=== PATIENT | female | born 1955 | race African-American/Black ===

== ENCOUNTER 2017-09-06 14:19 | Inpatient (IN) | payer MEDICARE ==
[2017-09-06] MEDS ORDERED: Acetaminophen TAB* 325 MG PO ONE (16:09)
[2017-09-06] MEDS ORDERED: Ondansetron INJ* 2 MG/ML VIAL IV ONE (16:09)
[2017-09-06] MEDS ORDERED: Ketorolac INJ* 30 MG/ML 1 ML VIAL IV ONE (16:09)
[2017-09-06] MEDS ORDERED: Albuterol/Ipratropium NEB.SOL* Albuterol 2.5 MG/Ipratropium 0.5 MG 3 ML INH ONE (16:09)
[2017-09-06] MEDS: NS 0.9% 1000 ML*IV.FLUID IV ONE ×2 (16:31→16:32)
[2017-09-06 16:52] LABS: ABS Basophils 0.1 10^3/ul (0-0.2); ABS Eosinophils 0 10^3/ul (0-0.6); ABS Lymphocytes 0.7 10^3/ul (1.0-4.8); ABS Monocytes 1.2 10^3/ul (0-0.8); ABS Neutrophils 4.7 10^3/ul (1.5-7.7); ABS Nucleated RBC 0 10^3/ul; Eosinophil % 0.3 % (0-6); Hematocrit 37 % (35-47); Mean Corpuscular HGB Conc 33 g/dl (31-36); Mean Corpuscular Hemoglobin 26 pg (27-31); Mean Corpuscular Volume 80 fL (80-97); Mean Platelet Volume 7 um3 (7.4-10.4); Nucleated Red Blood Cells % 0; Platelet Count 343 10^3/ul (150-450); Red Blood Count 4.56 10^6/ul (4.0-5.4); Red Cell Distribution Width 16 % (10.5-15); White Blood Count 6.7 10^3/ul (3.5-10.8)
[2017-09-06 17:01] LABS: INR 1.07 (0.77-1.02)
[2017-09-06 17:03] LABS: EGFR Non-African American 63.4 (>60)
--- NOTE | 2017-09-06 17:11 | RAD ---
INDICATION: Cough and wheezing. COMPARISON: Comparison is made with a prior chest x-ray study from November 07, 2014. TECHNIQUE: A portable view of the chest was obtained. FINDINGS: Cardiac and mediastinal contours appear to be within normal limits. The lungs are clear. No pleural effusion is seen. IMPRESSION: NO EVIDENCE FOR ACUTE DISEASE.
[2017-09-06] MEDS ORDERED: methylPREDNISolone 125 MG* 2 ML VIAL IV ONE (17:32)
[2017-09-06] MEDS ORDERED: Ondansetron INJ* 2 MG/ML VIAL IV PRN (17:32)
[2017-09-06] MEDS ORDERED: Albuterol 2.5 MG/3 ML NEB.SOL* (0.083%) INH PRN (17:32)
[2017-09-06] MEDS ORDERED: NS 0.9% 1000 ML* 1,000 ML IV SCH (17:45)
[2017-09-06 17:47] LABS: Urine Appearance Clear; Urine Blood 2+ (Negative); Urine Color Yellow; Urine Ketones 1+ (Negative); Urine Protein 1+(30 mg/dL) (Negative); Urine Specific Gravity 1.018 (1.010-1.030); Urine Urobilinogen Negative (Negative)
[2017-09-06] MEDS ORDERED: Albuterol/Ipratropium NEB.SOL* Albuterol 2.5 MG/Ipratropium 0.5 MG 3 ML INH SCH (18:00)
--- NOTE | 2017-09-06 19:43 | HP ---
CC: Dr. Blas * HISTORY AND PHYSICAL: DATE OF ADMISSION: 09/06/17 PRIMARY CARE PROVIDER: Dr. Blas. ATTENDING PHYSICIAN WHILE IN THE HOSPITAL: Dr. Regi Erwin * (report dictated by Norman Doan NP) CHIEF COMPLAINT: 1. Cough. 2. Arthralgias, myalgias. 3. Not feeling well. 4. Shortness of breath. HISTORY OF PRESENT ILLNESS: Ms. Adan is a 62-year-old female patient with a history of hypertension and asthma. She comes in to the ED today stating that she just since has not been feeling well. She has been tightness across her chest. She has been trying her nebulizers. They help initially, but they were off shortly and she was feeling like her chest was tight. She was having hard time breathing. She had been having runny nose, congested. She said she had a scratchy throat. She has just been aching all over, feeling really weak and fatigued. She came in to the ED today because she was not any getting better. She said she has been coughing and really just been productive of clear sputum. She denied any nausea or vomiting or diarrhea or any stomach pain. She said she has not had any exertional chest pain and just her chest really hurts when she coughs or takes a deep breath. She was evaluated here in the ED. It was noted that she was febrile. She was ultimately found to be flu positive and we were asked to evaluate for admission because of her history of asthma. In fact, she was wheezing on exam and it was felt that she would need aggressive therapy. PAST MEDICAL HISTORY: Significant for: 1. Hypertension. 2. Asthma. PAST SURGICAL HISTORY: 1. The patient has had a tubal ligation. 2. She has had a meningioma resection. MEDICATIONS: Home meds according to the bottle she brought in include: 1. Ferrous sulfate 325 mg p.o. daily. 2. Advair 1 puff inhaled b.i.d. 3. Flonase 50 mcg nasally daily. 4. Ventolin 2.5 mg inhaled q.4 hours as needed. 5. Triamcinolone cream 1 application topically daily. 6. Naproxen 220 mg p.o. daily. 7. Lisinopril 40 mg daily. 8. Amlodipine 10 mg p.o. daily. 9. Lopressor 100 mg p.o. b.i.d. ALLERGIES TO MEDICATIONS: Include none, but she is allergic to EGGS. FAMILY HISTORY: Mother had a history of hypertension, asthma. Father had a history of CT. SOCIAL HISTORY: Former smoker. She quit about 6 years ago. She does not drink alcohol. Surrogate decision maker is her son. REVIEW OF SYSTEMS: There is a documented fever here. She denied having any significant weight change. There was no double vision. There is no ear discharge. There is rhinorrhea. There is sore throat. There was no thyroid enlargement. There is chest pain when she coughs or takes deep breath. There is no abdominal pain. No nausea, no vomiting. No dysuria, no frequency. There was no seizure, no loss of consciousness. No pruritus and no skin ulcerations. Review of 14 systems was completed, all others negative. PHYSICAL EXAMINATION GENERAL: At this time, Ms. Adan is a 62-year-old female patient. She is sitting in the ED stretcher. She does not appear to be in any acute distress. She is awake and alert. VITAL SIGNS: Blood pressure initially when she came in 176/91 with pulse 104; respirations were 27, they are now 20; O2 sat 100% on room air; temperature was 101.2. HEENT: Head: Atraumatic, normocephalic. Eyes: EOMs are intact. Sclerae anicteric and not pale. Throat: Oral mucosa appears to be moist. No oropharyngeal erythema. NECK: Supple. LUNGS: She had expiratory wheezing noted throughout. She has equal diaphragmatic expansion. HEART: Sounds S1, S2. Regular rate and rhythm. No murmurs, rubs, or gallops. ABDOMEN: Soft, flat, nontender. Bowel sounds present. EXTREMITIES: Pulses were 2+ throughout. She is able to move all 4 extremities with 5/5 strength. NEUROLOGIC: The patient is awake, alert, she is oriented x3. Her tongue is midline. Sound System Installer were equal. She had no gross focal deficits. SKIN: Intact. DIAGNOSTIC STUDIES/LAB DATA: WBC is 6.7, RBC of 4.56, hemoglobin 12.0, hematocrit 37, platelet count of 343. Sodium 134, potassium 3.5, chloride of 97 , bicarb 27, BUN 10, creatinine of 0.90, glucose 105, lactate 0.6, calcium 9.2. Total bili 0.5, AST 21, ALT 11, alk phos 89. Troponin 0.01. CRP of 34. BNP 44. Albumin 4.0. Serology was positive for flu A. She had a chest x-ray obtained today, which showed no active disease. Old medical records were reviewed. ASSESSMENT AND PLAN: Ms. Adan is a 62-year-old female patient coming in to the ED today with complaints of cough, not feeling well, rhinorrhea, congestion. On evaluation, was found to be flu A positive. She will be admitted under observation status for: 1. Influenza A with asthma exacerbation. At this point, I do feel she needs observation stay. I am going to go ahead and give her steroids. Start with Solu- Medrol 60 b.i.d. Load her with 125 right now. In addition to this, I will go ahead, put her on nebs every 4 hours, p.r.n. albuterol. We will get Dulera started. Start her on Tamiflu, which has been ordered and we will continue with supportive care. We will hydrate the patient, which has been started here in the ED and we will continue to follow. 2. Hypertension. Again, blood pressures are in the 170s here, but she did not take her meds this morning. We will give her meds back this morning for today and we will follow this closely. 3. DVT prophylaxis. I will place her on heparin subcu. 4. Code status. Full code. 5. Fluids, electrolytes, and nutrition. Normal saline at 100 an hour has been ordered. She can have a regular diet. TIME SPENT: On admission was 60 minutes, greater than half the time was spent face- to-face with the patient obtaining my history and physical, other half time was spent going over the plan of care with the patient and implementing plan of care. I did discuss the plan of care with my attending, Dr. Erwin; she is in agreement. NORMAN DOAN NP [id number]/[facility] #: [id number] MTDD
--- NOTE | 2017-09-06 20:16 | ED ---
Antonio Bejarano Tecjoon, scribed for Edward Higuera MD on 09/06/17 at 1612 . HPI Febrile Illness - HPI Summary HPI Summary: This patient is a 62 year old female presenting to [facility] accompanied by family and friends with a chief complaint of productive cough and febrile illness since 2 days ago, worsening yesterday. Patient states she has been feeling generally ill. The pain is rated 8/10 in severity. Symptoms aggravated by nothing. Symptoms alleviated by OTC medication. Patient additionally reports chest pain, cough, lower back pain, headache, general bodyaches, fever, chills, wheezing, scratchy throat. Patient denies nausea, vomiting, diarrhea, urinary problems. Patient denies a history of kidney problems. When checking blood pressure at home, pt states it was 171/86. - History of Current Complaint Chief Complaint: EDAsthma Time Seen by Provider: 09/06/17 15:57 Hx Obtained From: Patient Onset/Duration: Started Days Ago - 2, Still Present, Worse Since - yesterday Timing: Constant Current Severity: Moderate Pain Intensity: 8 Pain Scale Used: 0-10 Numeric Aggravating Factors: Nothing Alleviating Factors: OTC Medicine Associated Signs and Symptoms: Negative - denies nausea, vomiting, diarrhea, urinary problems, Other: - chest pain, cough, lower back pain, headache, general bodyaches, fever, chills, wheezing, scratchy throat. - Allergy/Home Medications Allergies/Adverse Reactions: Allergies Allergy/AdvReac Type Severity Reaction Status Date / Time Eggs or Egg-derived Products Allergy Intermediate Nausea And Verified 11/18/16 09:34 Vomiting Home Medications: Home Medications Ferrous Sulfate TAB* 325 mg PO DAILY 09/06/17 [History Confirmed 09/06/17] Naproxen Sodium [Naproxen Sodium 220 mg] 220 mg PO DAILY 09/06/17 [History Confirmed 09/06/17] PMH/Surg Hx/FS Hx/Imm Hx Previously Healthy: No Endocrine/Hematology History: Denies: Hx Diabetes - BORDERLINE NO MEDICATION Cardiovascular History: Reports: Hx Hypertension Denies: Hx Pacemaker/ICD Respiratory History: Reports: Hx Asthma, Hx Pneumonia, Hx Sleep Apnea - uses CPAP History: Denies: Hx Renal Disease Musculoskeletal History: Denies: Hx Osteoporosis Sensory History: Reports: Hx Contacts or Glasses Denies: Hx Hearing Aid Opthamlomology History: Reports: Hx Contacts or Glasses Psychiatric History: Reports: Hx Depression - did not take meds for Denies: Hx Panic Disorder - Cancer History Cancer Type, Location and Year: maningioma tumor - surgical removal Hx Chemotherapy: No Hx Radiation Therapy: No - Surgical History Surgery Procedure, Year, and Place: Tubal ligation; removal of brain tumor 2011 IN [facility](SEVERAL [place] [facility] [place] RT FOOT SURGERY(PINS IN TOES) Infectious Disease History: No Infectious Disease History: Denies: Traveled Outside the [place] in Last 30 Days - Family History Known Family History: Positive: Hypertension Family History: Mother - thyroid disorder - Social History Alcohol Use: Rare - 1/2 a year Hx Substance Use: No Substance Use Type: Reports: None Hx Tobacco Use: Yes Smoking Status (MU): Former Smoker Review of Systems Positive: Fever, Chills Positive: Other - "scratchy" throat Positive: Chest Pain Positive: Cough, Other - wheezing Negative: Vomiting, Diarrhea, Nausea Genitourinary: Negative - urinary problems Positive: Other - lower back pain, general bodyaches Positive: Headache All Other Systems Reviewed And Are Negative: Yes Physical Exam - Summary Physical Exam Summary: General: Moderately ill-appearing. mild respiratory distress Skin: warm, color reflects adequate perfusion, dry Head: normal Eyes: EOMI, VIANCA ENT: normal Neck: supple, nontender Respiratory: loose cough. bilateral wheezing Cardiovascular: Tachycardic Abdomen: soft, nontender Bowel: present Musculoskeletal: normal, strength/ROM intact Neurological: normal, sensory/motor intact, A&O x3 Psychological: affect/mood appropriate Triage Information Reviewed: Yes Vital Signs On Initial Exam: Initial Vitals Temp Pulse Resp BP Pulse Ox 101.2 F 98 18 147/100 96 09/06/17 14:21 09/06/17 14:21 09/06/17 14:21 09/06/17 14:21 09/06/17 14:21 Vital Signs Reviewed: Yes Diagnostics - Vital Signs Vital Signs Temp Pulse Resp BP Pulse Ox 09/06/17 14:21 101.2 F 98 18 147/100 96 - Laboratory Lab Results: Lab Results 09/06/17 09/06/17 09/06/17 Range/Units 16:35 16:35 16:35 WBC (3.5-10.8) 10^3/ul RBC (4.0-5.4) 10^6/ul Hgb (12.0-16.0) g/dl Hct (35-47) % MCV (80-97) fL MCH (27-31) pg MCHC (31-36) g/dl RDW (10.5-15) % Plt Count (150-450) 10^3/ul MPV (7.4-10.4) um3 Neut % (Auto) (38-83) % Lymph % (Auto) (25-47) % [place] % (Auto) (1-9) % Eos % (Auto) (0-6) % Baso % (Auto) (0-2) % Absolute Neuts (auto) (1.5-7.7) 10^3/ul Absolute Lymphs (auto) (1.0-4.8) 10^3/ul Absolute Monos (auto) (0-0.8) 10^3/ul Absolute Eos (auto) (0-0.6) 10^3/ul Absolute Basos (auto) (0-0.2) 10^3/ul Absolute Nucleated RBC 10^3/ul Nucleated RBC % INR (Anticoag Therapy) 1.07 H (0.77-1.02) APTT 37.1 H (26.0-36.3) seconds Sodium 134 (133-145) mmol/L Potassium 3.5 (3.5-5.0) mmol/L Chloride 97 L (101-111) mmol/L Carbon Dioxide 29 (22-32) mmol/L Anion Gap 8 (2-11) mmol/L BUN 10 (6-24) mg/dL Creatinine 0.90 (0.51-0.95) mg/dL Est GFR ( Amer) 81.6 (>60) Est GFR (Non-Af Amer) 63.4 (>60) BUN/Creatinine Ratio 11.1 (8-20) Glucose 105 H (70-100) mg/dL Lactic Acid (0.5-2.0) mmol/L Calcium 9.2 (8.6-10.3) mg/dL Total Bilirubin 0.50 (0.2-1.0) mg/dL AST 21 (13-39) U/L ALT 11 (7-52) U/L Alkaline Phosphatase 89 (34-104) U/L Troponin I 0.01 (<0.04) ng/mL C-Reactive Protein 34.14 H (< 5.00) mg/L B-Natriuretic Peptide 44 ( - 100) pg/mL Total Protein 7.9 (6.4-8.9) g/dL Albumin 4.0 (3.2-5.2) g/dL Globulin 3.9 (2-4) g/dL Albumin/Globulin Ratio 1.0 (1-3) Urine Color Urine Appearance Urine pH (5-9) Ur Specific [place] (1.010-1.030) Urine Protein (Negative) Urine Ketones (Negative) Urine Blood (Negative) Urine Nitrate (Negative) Urine Bilirubin (Negative) Urine Urobilinogen (Negative) Ur Leukocyte Esterase (Negative) Urine WBC (Auto) (Absent) Urine RBC (Auto) (Absent) Ur Squamous Epith Cells (Absent) Urine Bacteria (Absent) Urine Glucose (Negative) Influenza A (Rapid) (Negative) Influenza B (Rapid) (Negative) 09/06/17 09/06/17 09/06/17 Range/Units 16:35 16:35 17:13 WBC 6.7 (3.5-10.8) 10^3/ul RBC 4.56 (4.0-5.4) 10^6/ul Hgb 12.0 (12.0-16.0) g/dl Hct 37 (35-47) % MCV 80 (80-97) fL MCH 26 L (27-31) pg MCHC 33 (31-36) g/dl RDW 16 H (10.5-15) % Plt Count 343 (150-450) 10^3/ul MPV 7 L (7.4-10.4) um3 Neut % (Auto) 70.2 (38-83) % Lymph % (Auto) 11.0 L (25-47) % [place] % (Auto) 17.7 H (1-9) % Eos % (Auto) 0.3 (0-6) % Baso % (Auto) 0.8 (0-2) % Absolute Neuts (auto) 4.7 (1.5-7.7) 10^3/ul Absolute Lymphs (auto) 0.7 L (1.0-4.8) 10^3/ul Absolute Monos (auto) 1.2 H (0-0.8) 10^3/ul Absolute Eos (auto) 0 (0-0.6) 10^3/ul Absolute Basos (auto) 0.1 (0-0.2) 10^3/ul Absolute Nucleated RBC 0 10^3/ul Nucleated RBC % 0 INR (Anticoag Therapy) (0.77-1.02) APTT (26.0-36.3) seconds Sodium (133-145) mmol/L Potassium (3.5-5.0) mmol/L Chloride (101-111) mmol/L Carbon Dioxide (22-32) mmol/L Anion Gap (2-11) mmol/L BUN (6-24) mg/dL Creatinine (0.51-0.95) mg/dL Est GFR ( Amer) (>60) Est GFR (Non-Af Amer) (>60) BUN/Creatinine Ratio (8-20) Glucose (70-100) mg/dL Lactic Acid 0.6 (0.5-2.0) mmol/L Calcium (8.6-10.3) mg/dL Total Bilirubin (0.2-1.0) mg/dL AST (13-39) U/L ALT (7-52) U/L Alkaline Phosphatase (34-104) U/L Troponin I (<0.04) ng/mL C-Reactive Protein (< 5.00) mg/L B-Natriuretic Peptide ( - 100) pg/mL Total Protein (6.4-8.9) g/dL Albumin (3.2-5.2) g/dL Globulin (2-4) g/dL Albumin/Globulin Ratio (1-3) Urine Color Urine Appearance Urine pH (5-9) Ur Specific [place] (1.010-1.030) Urine Protein (Negative) Urine Ketones (Negative) Urine Blood (Negative) Urine Nitrate (Negative) Urine Bilirubin (Negative) Urine Urobilinogen (Negative) Ur Leukocyte Esterase (Negative) Urine WBC (Auto) (Absent) Urine RBC (Auto) (Absent) Ur Squamous Epith Cells (Absent) Urine Bacteria (Absent) Urine Glucose (Negative) Influenza A (Rapid) Positive H (Negative) Influenza B (Rapid) Negative (Negative) 09/06/17 Range/Units 17:18 WBC (3.5-10.8) 10^3/ul RBC (4.0-5.4) 10^6/ul Hgb (12.0-16.0) g/dl Hct (35-47) % MCV (80-97) fL MCH (27-31) pg MCHC (31-36) g/dl RDW (10.5-15) % Plt Count (150-450) 10^3/ul MPV (7.4-10.4) um3 Neut % (Auto) (38-83) % Lymph % (Auto) (25-47) % [place] % (Auto) (1-9) % Eos % (Auto) (0-6) % Baso % (Auto) (0-2) % Absolute Neuts (auto) (1.5-7.7) 10^3/ul Absolute Lymphs (auto) (1.0-4.8) 10^3/ul Absolute Monos (auto) (0-0.8) 10^3/ul Absolute Eos (auto) (0-0.6) 10^3/ul Absolute Basos (auto) (0-0.2) 10^3/ul Absolute Nucleated RBC 10^3/ul Nucleated RBC % INR (Anticoag Therapy) (0.77-1.02) APTT (26.0-36.3) seconds Sodium (133-145) mmol/L Potassium (3.5-5.0) mmol/L Chloride (101-111) mmol/L Carbon Dioxide (22-32) mmol/L Anion Gap (2-11) mmol/L BUN (6-24) mg/dL Creatinine (0.51-0.95) mg/dL Est GFR ( Amer) (>60) Est GFR (Non-Af Amer) (>60) BUN/Creatinine Ratio (8-20) Glucose (70-100) mg/dL Lactic Acid (0.5-2.0) mmol/L Calcium (8.6-10.3) mg/dL Total Bilirubin (0.2-1.0) mg/dL AST (13-39) U/L ALT (7-52) U/L Alkaline Phosphatase (34-104) U/L Troponin I (<0.04) ng/mL C-Reactive Protein (< 5.00) mg/L B-Natriuretic Peptide ( - 100) pg/mL Total Protein (6.4-8.9) g/dL Albumin (3.2-5.2) g/dL Globulin (2-4) g/dL Albumin/Globulin Ratio (1-3) Urine Color Yellow Urine Appearance Clear Urine pH 6.0 (5-9) Ur Specific [place] 1.018 (1.010-1.030) Urine Protein 1+(30 mg/dl) H (Negative) Urine Ketones 1+ H (Negative) Urine Blood 2+ H (Negative) Urine Nitrate Negative (Negative) Urine Bilirubin Negative (Negative) Urine Urobilinogen Negative (Negative) Ur Leukocyte Esterase 1+ H (Negative) Urine WBC (Auto) Trace(0-5/hpf) (Absent) Urine RBC (Auto) 3+(>10/hpf) H (Absent) Ur Squamous Epith Cells Present H (Absent) Urine Bacteria Absent (Absent) Urine Glucose Negative (Negative) Influenza A (Rapid) (Negative) Influenza B (Rapid) (Negative) Result Diagrams: 09/06/17 16:35 09/06/17 16:35 Lab Statement: Any lab studies that have been ordered have been reviewed, and results considered in the medical decision making process. - Radiology CXR Xray Interpretation: No Acute Changes - IMPRESSION: NO EVIDENCE FOR ACUTE DISEASE. ED physician has reviewed this radiology report. Radiology Interpretation Completed By: Radiologist Course/Dx - Course Course Of Treatment: ADMIT HOSPITALIST. NO CRITICAL CARE TIME. - Diagnoses Provider Diagnoses: Influenza A, Asthma exacerbation Discharge - Discharge Plan Condition: Stable Disposition: ADMITTED TO [facility] The documentation as recorded by the Antonio condon Tecjoon accurately reflects the service I personally performed and the decisions made by , Edward Higuera MD.
[2017-09-06] MEDS: Mometasone/Formoter 200/5 MDI INH SCH (20:34)
[2017-09-06] MEDS: Albuterol/Ipratropium NEB.SOL* Albuterol 2.5 MG/Ipratropium 0.5 MG 3 ML INH SCH ×2 (20:34→23:12)
[2017-09-06] MEDS: Lisinopril TAB* 10 MG PO SCH (21:57)
[2017-09-06] MEDS: Oseltamivir CAP* 75 MG PO SCH (21:57)
[2017-09-06] MEDS: Metoprolol Tartrate TAB* 50 mg PO SCH ×2 (21:57)
[2017-09-06] MEDS: amLODIPine TAB* 5 MG PO SCH (21:57)
[2017-09-06] MEDS: methylPREDNISolone 125 MG* 2 ML VIAL IV SCH (22:00)
[2017-09-06] MEDS: Heparin VIAL(*) 5000 UNITS/ML VIAL (FIVE THOUSAND) SUBCUT SCH (22:00)
[2017-09-07] MEDS: Acetaminophen TAB* 325 MG PO PRN ×2 (01:38→17:32)
[2017-09-07] MEDS: Albuterol/Ipratropium NEB.SOL* Albuterol 2.5 MG/Ipratropium 0.5 MG 3 ML INH SCH ×5 (03:23→19:35)
[2017-09-07] MEDS: methylPREDNISolone 125 MG* 2 ML VIAL IV SCH ×2 (06:02→17:25)
[2017-09-07] MEDS: Heparin VIAL(*) 5000 UNITS/ML VIAL (FIVE THOUSAND) SUBCUT SCH ×3 (06:02→20:48)
[2017-09-07 07:36] LABS: ABS Basophils 0 10^3/ul (0-0.2); ABS Eosinophils 0 10^3/ul (0-0.6); ABS Lymphocytes 0.7 10^3/ul (1.0-4.8); ABS Monocytes 0.1 10^3/ul (0-0.8); ABS Neutrophils 3.8 10^3/ul (1.5-7.7); ABS Nucleated RBC 0 10^3/ul; Eosinophil % 0.1 % (0-6); Hematocrit 37 % (35-47); Hemoglobin 12.1 g/dl (12.0-16.0); Mean Corpuscular HGB Conc 33 g/dl (31-36); Mean Corpuscular Hemoglobin 26 pg (27-31); Mean Corpuscular Volume 81 fL (80-97); Mean Platelet Volume 7 um3 (7.4-10.4); Nucleated Red Blood Cells % 0.1; Platelet Count 329 10^3/ul (150-450); Red Cell Distribution Width 16 % (10.5-15); White Blood Count 4.6 10^3/ul (3.5-10.8)
[2017-09-07 08:01] LABS: EGFR Non-African American 86.2 (>60)
[2017-09-07] MEDS: Lisinopril TAB* 10 MG PO SCH (08:18)
[2017-09-07] MEDS: Metoprolol Tartrate TAB* 50 mg PO SCH ×2 (08:18→20:47)
[2017-09-07] MEDS: Oseltamivir CAP* 75 MG PO SCH ×2 (08:18→20:47)
[2017-09-07] MEDS: amLODIPine TAB* 5 MG PO SCH (08:18)
[2017-09-07] MEDS: Mometasone/Formoter 200/5 MDI INH SCH ×3 (08:30→19:36)
--- NOTE | 2017-09-07 11:34 | PN ---
Subjective Date of Service: 09/07/17 Interval History: Pt examined today at the bedside. Pt denies chest pain and denies sob at rest. She has sob with exertion. She states that she feels a little better today. Denies abdominal pain. ROS-denies chest pain, admits to sob with exertion, denies abdominal pain, denies nausea, denies vomiting, denies lightheadedness, denies loc, denies fever or chills, review of 11 systems completed all others negative, Objective Active Medications: Acetaminophen (Tylenol Tab*) 650 mg PO Q4H PRN PRN Reason: FEVER/PAIN Last Admin: 09/07/17 01:38 Dose: 650 mg Albuterol (Ventolin 2.5 Mg/3 Ml Neb.Sharlene*) 2.5 mg INH Q2H PRN PRN Reason: SOB/WHEEZING Albuterol/Ipratropium (Duoneb (Albuterol 2.5 Mg/Ipratropium 0.5 Mg)) 1 neb INH Q4H [facility] Last Admin: 09/07/17 10:09 Dose: Not Given Amlodipine Besylate (Norvasc Tab*) 10 mg PO DAILY [facility] Last Admin: 09/07/17 08:18 Dose: 10 mg Heparin Sodium (Porcine) (Heparin Vial(*)) 5,000 units SUBCUT Q8HR [facility] Last Admin: 09/07/17 06:02 Dose: 5,000 units Sodium Chloride (Ns 0.9% 1000 Ml*) 1,000 mls @ 100 mls/hr IV PER RATE [facility] Last Admin: 09/06/17 22:09 Dose: 100 mls/hr Lisinopril (Prinivil Tab*) 40 mg PO DAILY [facility] Last Admin: 09/07/17 08:18 Dose: 40 mg Methylprednisolone Sodium Succinate (Solu-Medrol 125mg *) 60 mg IV Q12H [facility] Last Admin: 09/07/17 06:02 Dose: 60 mg Metoprolol Tartrate (Lopressor Tab*) 100 mg PO BID [facility] Last Admin: 09/07/17 08:18 Dose: 100 mg Mometasone Furoate/Formoterol Fumar (Dulera 200/5 Mdi*) 2 puff INH BID [facility] Last Admin: 09/07/17 10:09 Dose: Not Given Ondansetron HCl (Zofran Inj*) 4 mg IV Q6H PRN PRN Reason: NAUSEA Oseltamivir Phosphate (Tamiflu Cap*) 75 mg PO BID [facility] Stop: 09/11/17 09:01 Last Admin: 09/07/17 08:18 Dose: 75 mg Vital Signs - 8 hr 09/07/17 09/07/17 09/07/17 07:21 08:18 08:19 Temperature 98.1 F Pulse Rate 74 74 70 Respiratory 17 20 20 Rate Blood Pressure 149/76 (mmHg) O2 Sat by Pulse 94 94 94 Oximetry Oxygen Devices in Use Now: None Appearance: 62 y/o female patient sitting in bed NAD, Eyes: No Scleral Icterus, PERRLA Ears/Nose/Mouth/Throat: NL Teeth, Lips, Gums Neck: NL Appearance and Movements; NL JVP Respiratory: Symmetrical Chest Expansion and Respiratory Effort, - - wheezing noted in upper and lower lobes, rhonchi in upper lobes, Cardiovascular: NL Sounds; No Murmurs; No JVD Abdominal: NL Sounds; No Tenderness; No Distention Extremities: No Edema Skin: No Rash or Ulcers Neurological: Alert and Oriented x 3 Lines/Tubes/Other Access: Clean, Dry and Intact Peripheral IV Result Diagrams: 09/07/17 07:30 09/07/17 07:30 Additional Lab and Data: Lab Results 09/06/17 09/06/17 09/06/17 Range/Units 16:35 16:35 16:35 WBC (3.5-10.8) 10^3/ul RBC (4.0-5.4) 10^6/ul Hgb (12.0-16.0) g/dl Hct (35-47) % MCV (80-97) fL MCH (27-31) pg MCHC (31-36) g/dl RDW (10.5-15) % Plt Count (150-450) 10^3/ul MPV (7.4-10.4) um3 Neut % (Auto) (38-83) % Lymph % (Auto) (25-47) % [place] % (Auto) (1-9) % Eos % (Auto) (0-6) % Baso % (Auto) (0-2) % Absolute Neuts (auto) (1.5-7.7) 10^3/ul Absolute Lymphs (auto) (1.0-4.8) 10^3/ul Absolute Monos (auto) (0-0.8) 10^3/ul Absolute Eos (auto) (0-0.6) 10^3/ul Absolute Basos (auto) (0-0.2) 10^3/ul Absolute Nucleated RBC 10^3/ul Nucleated RBC % INR (Anticoag Therapy) 1.07 H (0.77-1.02) APTT 37.1 H (26.0-36.3) seconds Sodium 134 (133-145) mmol/L Potassium 3.5 (3.5-5.0) mmol/L Chloride 97 L (101-111) mmol/L Carbon Dioxide 29 (22-32) mmol/L Anion Gap 8 (2-11) mmol/L BUN 10 (6-24) mg/dL Creatinine 0.90 (0.51-0.95) mg/dL Est GFR ( Amer) 81.6 (>60) Est GFR (Non-Af Amer) 63.4 (>60) BUN/Creatinine Ratio 11.1 (8-20) Glucose 105 H (70-100) mg/dL Lactic Acid (0.5-2.0) mmol/L Calcium 9.2 (8.6-10.3) mg/dL Total Bilirubin 0.50 (0.2-1.0) mg/dL AST 21 (13-39) U/L ALT 11 (7-52) U/L Alkaline Phosphatase 89 (34-104) U/L Troponin I 0.01 (<0.04) ng/mL C-Reactive Protein 34.14 H (< 5.00) mg/L B-Natriuretic Peptide 44 ( - 100) pg/mL Total Protein 7.9 (6.4-8.9) g/dL Albumin 4.0 (3.2-5.2) g/dL Globulin 3.9 (2-4) g/dL Albumin/Globulin Ratio 1.0 (1-3) Urine Color Urine Appearance Urine pH (5-9) Ur Specific [place] (1.010-1.030) Urine Protein (Negative) Urine Ketones (Negative) Urine Blood (Negative) Urine Nitrate (Negative) Urine Bilirubin (Negative) Urine Urobilinogen (Negative) Ur Leukocyte Esterase (Negative) Urine WBC (Auto) (Absent) Urine RBC (Auto) (Absent) Ur Squamous Epith Cells (Absent) Urine Bacteria (Absent) Urine Glucose (Negative) Influenza A (Rapid) (Negative) Influenza B (Rapid) (Negative) 09/06/17 09/06/17 09/06/17 Range/Units 16:35 16:35 17:13 WBC 6.7 (3.5-10.8) 10^3/ul RBC 4.56 (4.0-5.4) 10^6/ul Hgb 12.0 (12.0-16.0) g/dl Hct 37 (35-47) % MCV 80 (80-97) fL MCH 26 L (27-31) pg MCHC 33 (31-36) g/dl RDW 16 H (10.5-15) % Plt Count 343 (150-450) 10^3/ul MPV 7 L (7.4-10.4) um3 Neut % (Auto) 70.2 (38-83) % Lymph % (Auto) 11.0 L (25-47) % [place] % (Auto) 17.7 H (1-9) % Eos % (Auto) 0.3 (0-6) % Baso % (Auto) 0.8 (0-2) % Absolute Neuts (auto) 4.7 (1.5-7.7) 10^3/ul Absolute Lymphs (auto) 0.7 L (1.0-4.8) 10^3/ul Absolute Monos (auto) 1.2 H (0-0.8) 10^3/ul Absolute Eos (auto) 0 (0-0.6) 10^3/ul Absolute Basos (auto) 0.1 (0-0.2) 10^3/ul Absolute Nucleated RBC 0 10^3/ul Nucleated RBC % 0 INR (Anticoag Therapy) (0.77-1.02) APTT (26.0-36.3) seconds Sodium (133-145) mmol/L Potassium (3.5-5.0) mmol/L Chloride (101-111) mmol/L Carbon Dioxide (22-32) mmol/L Anion Gap (2-11) mmol/L BUN (6-24) mg/dL Creatinine (0.51-0.95) mg/dL Est GFR ( Amer) (>60) Est GFR (Non-Af Amer) (>60) BUN/Creatinine Ratio (8-20) Glucose (70-100) mg/dL Lactic Acid 0.6 (0.5-2.0) mmol/L Calcium (8.6-10.3) mg/dL Total Bilirubin (0.2-1.0) mg/dL AST (13-39) U/L ALT (7-52) U/L Alkaline Phosphatase (34-104) U/L Troponin I (<0.04) ng/mL C-Reactive Protein (< 5.00) mg/L B-Natriuretic Peptide ( - 100) pg/mL Total Protein (6.4-8.9) g/dL Albumin (3.2-5.2) g/dL Globulin (2-4) g/dL Albumin/Globulin Ratio (1-3) Urine Color Urine Appearance Urine pH (5-9) Ur Specific [place] (1.010-1.030) Urine Protein (Negative) Urine Ketones (Negative) Urine Blood (Negative) Urine Nitrate (Negative) Urine Bilirubin (Negative) Urine Urobilinogen (Negative) Ur Leukocyte Esterase (Negative) Urine WBC (Auto) (Absent) Urine RBC (Auto) (Absent) Ur Squamous Epith Cells (Absent) Urine Bacteria (Absent) Urine Glucose (Negative) Influenza A (Rapid) Positive H (Negative) Influenza B (Rapid) Negative (Negative) 09/06/17 Range/Units 17:18 WBC (3.5-10.8) 10^3/ul RBC (4.0-5.4) 10^6/ul Hgb (12.0-16.0) g/dl Hct (35-47) % MCV (80-97) fL MCH (27-31) pg MCHC (31-36) g/dl RDW (10.5-15) % Plt Count (150-450) 10^3/ul MPV (7.4-10.4) um3 Neut % (Auto) (38-83) % Lymph % (Auto) (25-47) % [place] % (Auto) (1-9) % Eos % (Auto) (0-6) % Baso % (Auto) (0-2) % Absolute Neuts (auto) (1.5-7.7) 10^3/ul Absolute Lymphs (auto) (1.0-4.8) 10^3/ul Absolute Monos (auto) (0-0.8) 10^3/ul Absolute Eos (auto) (0-0.6) 10^3/ul Absolute Basos (auto) (0-0.2) 10^3/ul Absolute Nucleated RBC 10^3/ul Nucleated RBC % INR (Anticoag Therapy) (0.77-1.02) APTT (26.0-36.3) seconds Sodium (133-145) mmol/L Potassium (3.5-5.0) mmol/L Chloride (101-111) mmol/L Carbon Dioxide (22-32) mmol/L Anion Gap (2-11) mmol/L BUN (6-24) mg/dL Creatinine (0.51-0.95) mg/dL Est GFR ( Amer) (>60) Est GFR (Non-Af Amer) (>60) BUN/Creatinine Ratio (8-20) Glucose (70-100) mg/dL Lactic Acid (0.5-2.0) mmol/L Calcium (8.6-10.3) mg/dL Total Bilirubin (0.2-1.0) mg/dL AST (13-39) U/L ALT (7-52) U/L Alkaline Phosphatase (34-104) U/L Troponin I (<0.04) ng/mL C-Reactive Protein (< 5.00) mg/L B-Natriuretic Peptide ( - 100) pg/mL Total Protein (6.4-8.9) g/dL Albumin (3.2-5.2) g/dL Globulin (2-4) g/dL Albumin/Globulin Ratio (1-3) Urine Color Yellow Urine Appearance Clear Urine pH 6.0 (5-9) Ur Specific [place] 1.018 (1.010-1.030) Urine Protein 1+(30 mg/dl) H (Negative) Urine Ketones 1+ H (Negative) Urine Blood 2+ H (Negative) Urine Nitrate Negative (Negative) Urine Bilirubin Negative (Negative) Urine Urobilinogen Negative (Negative) Ur Leukocyte Esterase 1+ H (Negative) Urine WBC (Auto) Trace(0-5/hpf) (Absent) Urine RBC (Auto) 3+(>10/hpf) H (Absent) Ur Squamous Epith Cells Present H (Absent) Urine Bacteria Absent (Absent) Urine Glucose Negative (Negative) Influenza A (Rapid) (Negative) Influenza B (Rapid) (Negative) Microbiology and Other Data: Microbiology 09/07/17 04:40 Legionella Urinary Antigen - Final Urine Negative Legionella Streptococcus pneumoniae Ag Screen - Final Negative S. pneumo Antigen 09/07/17 04:30 Gram Stain - Final Sputum Expectorated Assess/Plan/Problems-Billing Assessment: 62 y/o female patient [place] [facility] [place] chills, and not feeling well, found to have influenza, - Patient Problems (1) Asthma Current Visit: Yes Status: Acute Priority: High Comment: still wheezing on exam today, will continue nebs q4h and iv steriods, tamiflu continued as well , continue with pulm toilet slow to improve, (2) HTN (hypertension) Current Visit: Yes Status: Acute Priority: High Comment: Bp stable will continue home medications (3) Influenza Current Visit: Yes Status: Acute Priority: High Comment: supportive care and tamiflu (4) DVT prophylaxis Current Visit: Yes Status: Acute Priority: High Comment: heparin sub-q (5) FEN Current Visit: Yes Status: Acute Priority: High Comment: Regular diet Status and Disposition: Change to inpatient will continue nebs, steroids, tamiflu, hopeful for d/c in next 24-48 hrs,
[2017-09-08] MEDS: Albuterol/Ipratropium NEB.SOL* Albuterol 2.5 MG/Ipratropium 0.5 MG 3 ML INH SCH ×4 (01:06→13:10)
[2017-09-08] MEDS: Heparin VIAL(*) 5000 UNITS/ML VIAL (FIVE THOUSAND) SUBCUT SCH (05:45)
[2017-09-08] MEDS: methylPREDNISolone 125 MG* 2 ML VIAL IV SCH (05:45)
[2017-09-08] MEDS: Mometasone/Formoter 200/5 MDI INH SCH (07:47)
[2017-09-08 07:57] VITALS: BP 167/75
[2017-09-08] MEDS: Lisinopril TAB* 10 MG PO SCH (08:03)
[2017-09-08] MEDS: Oseltamivir CAP* 75 MG PO SCH (08:03)
[2017-09-08] MEDS: Metoprolol Tartrate TAB* 50 mg PO SCH (08:03)
[2017-09-08] MEDS: amLODIPine TAB* 5 MG PO SCH (08:03)
[2017-09-08 08:05] LABS: ABS Basophils 0 10^3/ul (0-0.2); ABS Eosinophils 0 10^3/ul (0-0.6); ABS Lymphocytes 1.1 10^3/ul (1.0-4.8); ABS Monocytes 0.5 10^3/ul (0-0.8); ABS Neutrophils 11.7 10^3/ul (1.5-7.7); ABS Nucleated RBC 0 10^3/ul; Eosinophil % 0 % (0-6); Hematocrit 34 % (35-47); Hemoglobin 11.3 g/dl (12.0-16.0); Lymphocyte % 8.2 % (25-47); Mean Corpuscular HGB Conc 33 g/dl (31-36); Mean Corpuscular Hemoglobin 26 pg (27-31); Mean Corpuscular Volume 79 fL (80-97); Mean Platelet Volume 7 um3 (7.4-10.4); Nucleated Red Blood Cells % 0.1; Platelet Count 350 10^3/ul (150-450); Red Blood Count 4.33 10^6/ul (4.0-5.4); Red Cell Distribution Width 16 % (10.5-15); White Blood Count 13.4 10^3/ul (3.5-10.8)
[2017-09-08 08:18] LABS: EGFR Non-African American 80.8 (>60)
[2017-09-08] MEDS ORDERED: Omeprazole CAP* 20 MG PO SCH (10:30)
--- NOTE | 2017-09-08 20:05 | PN ---
Subjective Date of Service: 09/08/17 Interval History: States that she is feeling much better today, states that breathing is improved Denies shortness of breath, chest pain or abd pain, Denies N/V/D Family History: Unchanged from Admission Social History: Unchanged from Admission Past Medical History: Unchanged from Admission Objective Vital Signs - 8 hr 09/08/17 13:13 Pulse Rate 66 Respiratory 18 Rate O2 Sat by Pulse 97 Oximetry Oxygen Devices in Use Now: None Appearance: alert, pleasent , appears comfortable , no respiratory distress. Eyes: No Scleral Icterus, PERRLA Ears/Nose/Mouth/Throat: Clear Oropharnyx, Mucous Membranes Moist Neck: NL Appearance and Movements; NL JVP, Trachea Midline Respiratory: Symmetrical Chest Expansion and Respiratory Effort, Clear to Auscultation Cardiovascular: NL Sounds; No Murmurs; No JVD, RRR, No Edema Abdominal: NL Sounds; No Tenderness; No Distention Extremities: No Edema, No Clubbing, Cyanosis Skin: No Rash or Ulcers Neurological: Alert and Oriented x 3, NL Sensation, NL Gait, NL Muscle Strength and Tone Nutrition: Taking PO's Result Diagrams: 09/08/17 07:33 09/08/17 07:33 Additional Lab and Data: Lab Results 09/06/17 09/06/17 09/06/17 Range/Units 16:35 16:35 16:35 WBC (3.5-10.8) 10^3/ul RBC (4.0-5.4) 10^6/ul Hgb (12.0-16.0) g/dl Hct (35-47) % MCV (80-97) fL MCH (27-31) pg MCHC (31-36) g/dl RDW (10.5-15) % Plt Count (150-450) 10^3/ul MPV (7.4-10.4) um3 Neut % (Auto) (38-83) % Lymph % (Auto) (25-47) % [place] % (Auto) (1-9) % Eos % (Auto) (0-6) % Baso % (Auto) (0-2) % Absolute Neuts (auto) (1.5-7.7) 10^3/ul Absolute Lymphs (auto) (1.0-4.8) 10^3/ul Absolute Monos (auto) (0-0.8) 10^3/ul Absolute Eos (auto) (0-0.6) 10^3/ul Absolute Basos (auto) (0-0.2) 10^3/ul Absolute Nucleated RBC 10^3/ul Nucleated RBC % INR (Anticoag Therapy) 1.07 H (0.77-1.02) APTT 37.1 H (26.0-36.3) seconds Sodium 134 (133-145) mmol/L Potassium 3.5 (3.5-5.0) mmol/L Chloride 97 L (101-111) mmol/L Carbon Dioxide 29 (22-32) mmol/L Anion Gap 8 (2-11) mmol/L BUN 10 (6-24) mg/dL Creatinine 0.90 (0.51-0.95) mg/dL Est GFR ( Amer) 81.6 (>60) Est GFR (Non-Af Amer) 63.4 (>60) BUN/Creatinine Ratio 11.1 (8-20) Glucose 105 H (70-100) mg/dL Lactic Acid (0.5-2.0) mmol/L Calcium 9.2 (8.6-10.3) mg/dL Total Bilirubin 0.50 (0.2-1.0) mg/dL AST 21 (13-39) U/L ALT 11 (7-52) U/L Alkaline Phosphatase 89 (34-104) U/L Troponin I 0.01 (<0.04) ng/mL C-Reactive Protein 34.14 H (< 5.00) mg/L B-Natriuretic Peptide 44 ( - 100) pg/mL Total Protein 7.9 (6.4-8.9) g/dL Albumin 4.0 (3.2-5.2) g/dL Globulin 3.9 (2-4) g/dL Albumin/Globulin Ratio 1.0 (1-3) Urine Color Urine Appearance Urine pH (5-9) Ur Specific [place] (1.010-1.030) Urine Protein (Negative) Urine Ketones (Negative) Urine Blood (Negative) Urine Nitrate (Negative) Urine Bilirubin (Negative) Urine Urobilinogen (Negative) Ur Leukocyte Esterase (Negative) Urine WBC (Auto) (Absent) Urine RBC (Auto) (Absent) Ur Squamous Epith Cells (Absent) Urine Bacteria (Absent) Urine Glucose (Negative) Influenza A (Rapid) (Negative) Influenza B (Rapid) (Negative) 09/06/17 09/06/17 09/06/17 Range/Units 16:35 16:35 17:13 WBC 6.7 (3.5-10.8) 10^3/ul RBC 4.56 (4.0-5.4) 10^6/ul Hgb 12.0 (12.0-16.0) g/dl Hct 37 (35-47) % MCV 80 (80-97) fL MCH 26 L (27-31) pg MCHC 33 (31-36) g/dl RDW 16 H (10.5-15) % Plt Count 343 (150-450) 10^3/ul MPV 7 L (7.4-10.4) um3 Neut % (Auto) 70.2 (38-83) % Lymph % (Auto) 11.0 L (25-47) % Cotton % (Auto) 17.7 H (1-9) % Eos % (Auto) 0.3 (0-6) % Baso % (Auto) 0.8 (0-2) % Absolute Neuts (auto) 4.7 (1.5-7.7) 10^3/ul Absolute Lymphs (auto) 0.7 L (1.0-4.8) 10^3/ul Absolute Monos (auto) 1.2 H (0-0.8) 10^3/ul Absolute Eos (auto) 0 (0-0.6) 10^3/ul Absolute Basos (auto) 0.1 (0-0.2) 10^3/ul Absolute Nucleated RBC 0 10^3/ul Nucleated RBC % 0 INR (Anticoag Therapy) (0.77-1.02) APTT (26.0-36.3) seconds Sodium (133-145) mmol/L Potassium (3.5-5.0) mmol/L Chloride (101-111) mmol/L Carbon Dioxide (22-32) mmol/L Anion Gap (2-11) mmol/L BUN (6-24) mg/dL Creatinine (0.51-0.95) mg/dL Est GFR ( Amer) (>60) Est GFR (Non-Af Amer) (>60) BUN/Creatinine Ratio (8-20) Glucose (70-100) mg/dL Lactic Acid 0.6 (0.5-2.0) mmol/L Calcium (8.6-10.3) mg/dL Total Bilirubin (0.2-1.0) mg/dL AST (13-39) U/L ALT (7-52) U/L Alkaline Phosphatase (34-104) U/L Troponin I (<0.04) ng/mL C-Reactive Protein (< 5.00) mg/L B-Natriuretic Peptide ( - 100) pg/mL Total Protein (6.4-8.9) g/dL Albumin (3.2-5.2) g/dL Globulin (2-4) g/dL Albumin/Globulin Ratio (1-3) Urine Color Urine Appearance Urine pH (5-9) Ur Specific [place] (1.010-1.030) Urine Protein (Negative) Urine Ketones (Negative) Urine Blood (Negative) Urine Nitrate (Negative) Urine Bilirubin (Negative) Urine Urobilinogen (Negative) Ur Leukocyte Esterase (Negative) Urine WBC (Auto) (Absent) Urine RBC (Auto) (Absent) Ur Squamous Epith Cells (Absent) Urine Bacteria (Absent) Urine Glucose (Negative) Influenza A (Rapid) Positive H (Negative) Influenza B (Rapid) Negative (Negative) 09/06/17 Range/Units 17:18 WBC (3.5-10.8) 10^3/ul RBC (4.0-5.4) 10^6/ul Hgb (12.0-16.0) g/dl Hct (35-47) % MCV (80-97) fL MCH (27-31) pg MCHC (31-36) g/dl RDW (10.5-15) % Plt Count (150-450) 10^3/ul MPV (7.4-10.4) um3 Neut % (Auto) (38-83) % Lymph % (Auto) (25-47) % Cotton % (Auto) (1-9) % Eos % (Auto) (0-6) % Baso % (Auto) (0-2) % Absolute Neuts (auto) (1.5-7.7) 10^3/ul Absolute Lymphs (auto) (1.0-4.8) 10^3/ul Absolute Monos (auto) (0-0.8) 10^3/ul Absolute Eos (auto) (0-0.6) 10^3/ul Absolute Basos (auto) (0-0.2) 10^3/ul Absolute Nucleated RBC 10^3/ul Nucleated RBC % INR (Anticoag Therapy) (0.77-1.02) APTT (26.0-36.3) seconds Sodium (133-145) mmol/L Potassium (3.5-5.0) mmol/L Chloride (101-111) mmol/L Carbon Dioxide (22-32) mmol/L Anion Gap (2-11) mmol/L BUN (6-24) mg/dL Creatinine (0.51-0.95) mg/dL Est GFR ( Amer) (>60) Est GFR (Non-Af Amer) (>60) BUN/Creatinine Ratio (8-20) Glucose (70-100) mg/dL Lactic Acid (0.5-2.0) mmol/L Calcium (8.6-10.3) mg/dL Total Bilirubin (0.2-1.0) mg/dL AST (13-39) U/L ALT (7-52) U/L Alkaline Phosphatase (34-104) U/L Troponin I (<0.04) ng/mL C-Reactive Protein (< 5.00) mg/L B-Natriuretic Peptide ( - 100) pg/mL Total Protein (6.4-8.9) g/dL Albumin (3.2-5.2) g/dL Globulin (2-4) g/dL Albumin/Globulin Ratio (1-3) Urine Color Yellow Urine Appearance Clear Urine pH 6.0 (5-9) Ur Specific [place] 1.018 (1.010-1.030) Urine Protein 1+(30 mg/dl) H (Negative) Urine Ketones 1+ H (Negative) Urine Blood 2+ H (Negative) Urine Nitrate Negative (Negative) Urine Bilirubin Negative (Negative) Urine Urobilinogen Negative (Negative) Ur Leukocyte Esterase 1+ H (Negative) Urine WBC (Auto) Trace(0-5/hpf) (Absent) Urine RBC (Auto) 3+(>10/hpf) H (Absent) Ur Squamous Epith Cells Present H (Absent) Urine Bacteria Absent (Absent) Urine Glucose Negative (Negative) Influenza A (Rapid) (Negative) Influenza B (Rapid) (Negative) Microbiology and Other Data: Microbiology 09/07/17 04:40 Legionella Urinary Antigen - Final Urine Negative Legionella Streptococcus pneumoniae Ag Screen - Final Negative S. pneumo Antigen 09/07/17 04:30 Gram Stain - Final Sputum Expectorated Assess/Plan/Problems-Billing Assessment: 62 y/[place] [facility] [place] chills, and not feeling well, found to have influenza, feeling better to day, will discharge home. - Patient Problems (1) Asthma Status: Acute Priority: High Code(s): J45.909 - UNSPECIFIED ASTHMA, UNCOMPLICATED SNOMED Code(s): 237335710 Comment: Wheezing improved today, Will place on po steroid taper, tamiflu continued as well continue albuterol nebs at home (2) DVT prophylaxis Status: Acute Priority: High Code(s): VRV0789 - SNOMED Code(s): 279005866 Comment: heparin sub-q (3) FEN Status: Acute Priority: High Comment: Regular diet (4) HTN (hypertension) Status: Acute Priority: High Code(s): I10 - ESSENTIAL (PRIMARY) HYPERTENSION SNOMED Code(s): 54156428 Comment: Bp stable will continue home medications (5) Influenza Status: Acute Priority: High Code(s): J11.1 - FLU DUE TO UNIDENTIFIED INFLUENZA VIRUS W OTH RESP MANIFEST SNOMED Code(s): 9177530 Comment: supportive care and tamiflu Status and Disposition: will continue nebs, steroids, tamiflu, will discharge home today
--- NOTE | 2017-09-10 14:05 | DS ---
CC: Dr. Blas * DISCHARGE SUMMARY: DATE OF ADMISSION: 09/06/17 DATE OF DISCHARGE: 09/08/17 PROVIDER: Laura Zamora NP. ATTENDING PHYSICIAN: Dr. Areli Emerson * (dictated by Laura Zamora NP). PRIMARY CARE PROVIDER: Dr. Blas. PRIMARY DIAGNOSES: 1. Shortness of breath. 2. Cough. 3. Influenza A. 4. Asthma exacerbation. SECONDARY DIAGNOSES: 1. Hypertension. 2. Asthma. STUDIES COMPLETED WHILE IN THE HOSPITAL: She had a chest x-ray done on . Radiologist impression was no evidence for acute disease. She had influenza swabs done for both A and B and A was positive for influenza, B was negative. Urine was negative for legionella and Strep pneumoniae. Sputum was negative, had normal mei. Venous blood gas showed no growth for two days. DISCHARGE MEDICATIONS: New medications, 1. Tamiflu 75 mg p.o. b.i.d. for three days. 2. Prednisone, she will take to a taper. She will start at 40 mg daily for 3 days, and then 20 mg daily for 3 days, and then 10 mg daily for 3 days, and then stop. Continued home medications, 1. She will continue albuterol nebulizers as needed. 2. Amlodipine 10 mg p.o. daily. 3. Iron 325 p.o. daily. 4. Fluticasone nasal spray. 5. Advair Diskus one puff twice daily. 6. Lisinopril 40 mg p.o. daily. 7. Metoprolol 100 mg b.i.d. 8. Naproxen 220 mg p.o. daily as needed. 9. Kenalog cream as needed. HISTORY OF PRESENT ILLNESS AND HOSPITAL COURSE: Ms. Adan is a 62-year-old female with a history of hypertension and asthma. She came to the emergency room, stating she just had not felt well since . She had tightness across her chest. She has been trying her nebulizers. They helped initially but wore out shortly after. She complains of a runny nose and congestion, scratchy throat, and aching all over, feeling weak and fatigued. She presented to the ER due to the cough, not getting any better and her symptoms not improving. She was ultimately found in the emergency room to be positive for flu A. Due to the fact of her wheezing on exam, she was admitted to the hospital for IV steroids and placed on Tamiflu. While in the hospital, she was receiving breathing treatments, albuterol nebulizers, and Tamiflu. She continue to have wheezing on 09/07/17. On , on examination she was feeling better. The wheezing was minimal. The patient felt much better. The patient will be to discharge home today. Ms. Adan is stable for discharge home today. Vitals signs are as follows: Temperature was 98.3, heart rate was 55, respirations 16, blood pressure 167/75 , oxygen saturation was 97% on room air. DISCHARGE PLAN: Ms. Adan will be discharged home. Activity as tolerated. She should continue on a heart-healthy diet. In regards to her influenza A, I will place her on Tamiflu 75 mg p.o. b.i.d. for 3 more days to complete a 5-day treatment. She will be placed on prednisone for her asthma exacerbation. She will take 40 mg for 3 days daily and then 20 mg daily for 3 days and then 10 mg daily for 3 days. She needs to follow up with her primary care doctor in 4 to 7 days. The patient has been asked to return to the emergency room for any increased shortness of breath or chest pain. This is a summary of her hospital stay. For further details, please see her entire medical record. TIME SPENT: The time spent on this discharge was approximately 60 minutes; greater than half the time was spent with the patient discussing discharge plan and instructions. CONDITION ON DISCHARGE: Stable. LAURA ZAMORA, GIACOMO [id number]/[facility] #: [id number] [place]
== END 2017-09-08 14:15 | disposition home or self-care (01) | DRG 194 ==
LOC: ED 14:19 → OBSVTOIN 17:29 → MED 17:29
PROVIDERS: ADMIT Internal Medicine; ATTEND Internal Medicine
DX: J10.1 Influenza due to other identified influenza virus with other respiratory manifestations (principal); J45.901 Unspecified asthma with (acute) exacerbation; I10 Essential (primary) hypertension; Z79.899 Other long term (current) drug therapy; Z91.012 Allergy to eggs; Z82.49 Family history of ischemic heart disease and other diseases of the circulatory system; Z82.5 Family history of asthma and other chronic lower respiratory diseases; Z87.891 Personal history of nicotine dependence
CPT/HCPCS: 36415; 71045; 80048; 80053; 81003; 81015; 83605; 83880; 84484; 85025; 85610; 85730; 86140; 87040; 87070; 87086; 87205; 87502; 87899; 94640; 94760; 96374; 99285; A9270-GY; J1644; J1885; J2405; J2930

== ENCOUNTER 2018-01-01 10:58 | Emergency (ER) | payer MEDICARE ==
[2018-01-01 11:30] VITALS: BP 164/68
--- NOTE | 2018-01-01 12:40 | UC ---
Eye Complaint HPI - HPI Summary HPI Summary: Patient comes to urgent care tonight complains of a couple days of itchy watery eyes nasal drainage. No fevers chills no cough - History of Current Complaint Hx Obtained From: Patient ?: No Onset/Duration: Sudden Onset, Lasting Days - 2-3, Still Present Severity Initially: Mild Severity Currently: Mild Pain Intensity: 0 Pain Scale Used: 0-10 Numeric Aggravating Factor(s): Nothing Alleviating Factor(s): Nothing Associated Signs And Symptoms: Positive: Drainage (Clear) <Karine rCuz - Last Filed: 01/01/18 15:30> <Katie David - Last Filed: 01/02/18 05:24> - History of Current Complaint Chief Complaint: UCEye Stated Complaint: EYE COMPLAINT Time Seen by Provider: 01/01/18 12:30 - Allergies/Home Medications Allergies/Adverse Reactions: Allergies Allergy/AdvReac Type Severity Reaction Status Date / Time Egg Derived Allergy Nausea And Verified 01/01/18 11:31 Vomiting PMH/Surg Hx/FS Hx/Imm Hx Previously Healthy: No Cardiovascular History: Hypertension Respiratory History: Asthma - Surgical History Surgical History: Yes Surgery Procedure, Year, and Place: Tubal ligation; removal of brain tumor 2011 IN [facility] [facility] [place] RT FOOT SURGERY(PINS IN TOES) - Family History Known Family History: Positive: Hypertension Family History: Mother - thyroid disorder - Social History Occupation: Retired Lives: With Family Alcohol Use: Rare Substance Use Type: None Smoking Status (MU): Former Smoker - Immunization History Most Recent Influenza Vaccination: refuses Most Recent Tetanus Shot: up to date Most Recent Pneumonia Vaccination: currently has pneumonia <Karine Cruz - Last Filed: 01/01/18 15:30> Review of Systems Constitutional: Negative Skin: Negative Eyes: Drainage - clear ENT: Nasal Discharge Respiratory: Negative Cardiovascular: Negative Gastrointestinal: Negative Genitourinary: Negative Motor: Negative Neurovascular: Negative Musculoskeletal: Negative Neurological: Negative Psychological: Negative Is Patient Immunocompromised?: No All Other Systems Reviewed And Are Negative: Yes <Karine Cruz - Last Filed: 01/01/18 15:30> Physical Exam Triage Information Reviewed: Yes Appearance: Well-Appearing, No Pain Distress, Well-Nourished Vital Signs: Initial Vital Signs Temp 98.4 F 01/01/18 11:25 Pulse 61 01/01/18 11:25 Resp 18 01/01/18 11:25 BP 164/68 01/01/18 11:25 Pulse Ox 100 01/01/18 11:25 Vital Signs Reviewed: Yes Eye Exam: Normal Eyes: Positive: Conjunctiva Clear, Discharge ENT Exam: Normal ENT: Positive: Normal ENT inspection, Hearing grossly normal, Pharynx normal, Nasal congestion, TMs normal. Negative: Tonsillar swelling, Tonsillar exudate, Trismus, Muffled voice, Hoarse voice, Dental tenderness, Sinus tenderness, Uvula midline Dental Exam: Normal Neck exam: Normal Neck: Positive: 1 Respiratory Exam: Normal Respiratory: Positive: Chest non-tender, Lungs clear, Normal breath sounds, No respiratory distress, No accessory muscle use Cardiovascular Exam: Normal Cardiovascular: Positive: RRR, No Murmur, Pulses Normal, Brisk Capillary Refill Musculoskeletal Exam: Normal Musculoskeletal: Positive: Strength Intact, ROM Intact, No Edema Neurological Exam: Normal Neurological: Positive: Alert, Muscle Tone Normal Psychological Exam: Normal Skin Exam: Normal <Karine Cruz - Last Filed: 01/01/18 15:30> Vital Signs: Initial Vital Signs Temp 98.4 F 01/01/18 11:25 Pulse 61 01/01/18 11:25 Resp 18 01/01/18 11:25 BP 164/68 01/01/18 11:25 Pulse Ox 100 01/01/18 11:25 <Katie David - Last Filed: 01/02/18 05:24> Eye Complaint Course/Dx - Course Course Of Treatment: zaditor and flonase increase fluids follow with pcp - Differential Dx/Diagnosis Provider Diagnoses: allergic rhinnitis and allergic conjuctivitis B/L <Karine Cruz - Last Filed: 01/01/18 15:30> Discharge - Sign-Out/Discharge Documenting (check all that apply): Discharge/Admit/Transfer - Billing Disposition and Condition Condition: STABLE Disposition: HOME <Karine Cruz Last Filed: 01/01/18 15:30> - Billing Disposition and Condition Condition: STABLE Disposition: HOME <Katie David - Last Filed: 01/02/18 05:24> - Discharge Plan Condition: Stable Disposition: HOME Prescriptions: Fluticasone NASAL SPRAY 50MCG* [Flonase NASAL SPRAY 50MCG*] 2 spray BOTH NARES DAILY #1 btl Ketotifen Fumarate [Zaditor] 0.025 % OP BID PRN #1 bottle PRN Reason: eye itching Patient Education Materials: How to Use Eye Drops (ED), Allergic Rhinitis (ED) , Hypertension (ED), Conjunctivitis (ED), How to Use Nasal [place] (ED) Referrals: Mary Alice Blas MD [Primary Care Provider] - 1 Week Attestation Statement User Type: Provider - I was available for consult. This patient was seen by the [facility]. The patient was not presented to, seen by, or examined by me. -Esequiel <Katie David - Last Filed: 01/02/18 05:24>
== END 2018-01-01 12:54 | disposition home or self-care (01) ==
LOC: UCEAST 10:58
DX: J30.9 Allergic rhinitis, unspecified (principal); H10.13 Acute atopic conjunctivitis, bilateral; I10 Essential (primary) hypertension; J45.909 Unspecified asthma, uncomplicated; Z87.891 Personal history of nicotine dependence
CPT/HCPCS: 99212; G0463

== ENCOUNTER 2018-11-17 11:32 | Emergency (ER) | payer MEDICARE ==
--- NOTE | 2018-11-17 11:54 | ED ---
HPI Chest Pain - HPI Summary HPI Summary: Pt is a 63 y/o female who presents to the ED c/o CP. She was sent here by Dr. Blas for a cardiac workup. One week ago, she suddenly began having sharp left anterior CP under her breast and felt flushed. Since then the pain has been intermittent. Pt now c/o sub-sternal pressure, is non-radiating, and is described as a 5/10 in severity. She denies any current pain, but winces intermittently. Pt also c/o SOB with exertion, but denies any diaphoresis, nausea, dizziness, or lightheadedness. PMHx HTN, borderline DM, meningioma. She denies any hx of DE, stroke, blood clots, or HLD. She is a former smoker, rarely uses alcohol, and denies drug use. Both pts uncle and father at 29 y/o from massive MIs. She denies taking daily ASA, but takes daily Aleve for her knee pain. She has not taken any OTC medications for her symptoms. Pt has not eaten yet today. Her last cardiac stress test was a while ago. Vital signs : HR 65 bpm, BP 186/87, O2 sat 100%. - History of Current Complaint Chief Complaint: EDChestPainROMI Time Seen by Provider: 11/17/18 11:50 Hx Obtained From: Patient Onset/Duration: Started Weeks Ago - 1, Still Present Timing: Intermittent - lasting seconds to minutes Initial Severity: Moderate Current Severity: None Pain Intensity: 5 Pain Scale Used: 0-10 Numeric Chest Pain Location: Mid Sternal - sub-sternal, Left Anterior - underneath breast Chest Pain Radiates: No Character: Pressure/Squeezing, Sharp/Stabbing Aggravating Factor(s): Nothing Alleviating Factor(s): Nothing Associated Signs and Symptoms: Positive: Chest Pain, Shortness of Breath - Risk Factors AMI/ACS Risk Factors: Diabetes - borderline, Family History - family in their 20 's with massive DE, Hypertension - Additional Pertinent History Primary Care Physician: [id number] - Allergy/Home Medications Allergies/Adverse Reactions: Allergies Allergy/AdvReac Type Severity Reaction Status Date / Time Egg Derived Allergy Nausea And Verified 02/16/18 09:34 Vomiting Home Medications: Home Medications Escitalopram * [Lexapro 10 mg (NF)] 10 mg PO DAILY 11/17/18 [History Confirmed 11/17/18] Ferrous Gluconate TAB* [Fergon TAB*] 325 mg PO DAILY 11/17/18 [History Confirmed 11/17/18] Fexofenadine HCl [Allergy Relief] 180 mg PO DAILY PRN 11/17/18 [History Confirmed 11/17/18] Fluocinonide 0.05% CM(NF) [Lidex 0.05% CREAM(NF)] 1 applic TOPICAL BID 11/17/18 [History Confirmed 11/17/18] Hydrochlorothiazide TAB* [Hydrodiuril TAB*] 12.5 mg PO DAILY 11/17/18 [History Confirmed 11/17/18] LoraTADine TAB(NF) [Claritin 10 MG TAB(NF)] 10 mg PO DAILY PRN 11/17/18 [ History Confirmed 11/17/18] Magnesium Oxide TAB* [MagOx 400 TAB*] 400 mg PO DAILY 11/17/18 [History Confirmed 11/17/18] Metoprolol Tartrate TAB* [Lopressor TAB*] 100 mg PO BID 11/17/18 [History Confirmed 11/17/18] Naproxen Sodium [Aleve] 220 - 440 mg PO BID PRN 11/17/18 [History Confirmed ] Omeprazole (Nf) [Prilosec (NF)] 40 mg PO DAILY 11/17/18 [History Confirmed 11/17] amLODIPine TAB* [Norvasc 5 mg TAB*] 10 mg PO DAILY 11/17/18 [History Confirmed 11/17/18] guaiFENesin ER TAB [Mucinex*] 600 mg PO BID PRN 11/17/18 [History Confirmed ] traZODone TAB* [Desyrel TAB*] 50 mg PO BEDTIME 11/17/18 [History Confirmed 11/17] PMH/Surg Hx/FS Hx/Imm Hx Previously Healthy: No Endocrine/Hematology History: Denies: Hx Diabetes - BORDERLINE NO MEDICATION, Other Endocrine/ Hematological Disorders - Neg: blood clots Cardiovascular History: Reports: Hx Hypertension Denies: Hx Hypercholesterolemia, Hx Myocardial Infarction, Hx Pacemaker/ICD Respiratory History: Reports: Hx Asthma, Hx Pneumonia, Hx Sleep Apnea - uses CPAP History: Denies: Hx Renal Disease Musculoskeletal History: Denies: Hx Osteoporosis Sensory History: Reports: Hx Contacts or Glasses Denies: Hx Hearing Aid Opthamlomology History: Reports: Hx Contacts or Glasses Neurological History: Denies: Hx CVA Psychiatric History: Reports: Hx Depression - did not take meds for Denies: Hx Panic Disorder - Cancer History Cancer Type, Location and Year: meningioma tumor - surgical removal Hx Chemotherapy: No Hx Radiation Therapy: No - Surgical History Surgery Procedure, Year, and Place: Tubal ligation;. removal of brain tumor 2011 IN [facility] [place] [facility] [place]. RT FOOT SURGERY(PINS IN TOES) Infectious Disease History: No Infectious Disease History: Denies: Traveled Outside the [place] in Last 30 Days - Family History Known Family History: Positive: Cardiac Disease - DE - father and uncle at 29 y/o, Hypertension Family History: Mother - thyroid disorder - Social History Alcohol Use: Rare Hx Substance Use: No Substance Use Type: Reports: None Hx Tobacco Use: Yes Smoking Status (MU): Former Smoker Review of Systems Positive: Other - flushed. Negative: Skin Diaphoresis Positive: Chest Pain Positive: Shortness Of Breath - with exertion Gastrointestinal: Negative Negative: Nausea Positive: no symptoms reported Musculoskeletal: Negative Skin: Negative Neurological: Other - NEGATIVE: dizziness, lightheadedness Psychological: Normal All Other Systems Reviewed And Are Negative: Yes Physical Exam - Summary Physical Exam Summary: Appearance: Ill-appearing, moderate pain distress, well-nourished Skin: Warm, color reflects adequate perfusion, dry Head: Normal Head/Face inspection, atraumatic Eyes: Conjunctiva clear ENT: Normal inspection Neck: Supple, no nodes, no JVD Respiratory: Lungs clear, normal breath sounds, no respiratory distress Cardio: RRR, No murmur, pulses normal, brisk capillary refill Abdomen: Soft, nontender Bowel sounds: Present Musculoskeletal: Strength Intact/ROM intact, no calf tenderness, no edema. Psychological: Normal Neuro: Alert, muscle tone normal, no focal deficit Triage Information Reviewed: Yes Vital Signs On Initial Exam: Initial Vitals Temp Pulse Resp BP Pulse Ox 99.2 F 64 18 190/115 99 11/17/18 11:35 11/17/18 11:35 11/17/18 11:35 11/17/18 11:35 11/17/18 11:35 Vital Signs Reviewed: Yes Diagnostics - Vital Signs Vital Signs Temp Pulse Resp BP Pulse Ox 11/17/18 11:35 99.2 F 64 18 190/115 99 - Laboratory Result Diagrams: 11/17/18 12:59 11/17/18 12:59 Lab Statement: Any lab studies that have been ordered have been reviewed, and results considered in the medical decision making process. - Radiology CXR Radiology Interpretation Completed By: Radiologist Summary of Radiographic Findings: Stigmata of obstructive lung disease. No acute pulmonary or cardiac process evident. ED physician reviewed radiology report. - EKG 11:54 Cardiac Rate: NL - 65 bpm EKG Rhythm: Sinus Rhythm ST Segment: Non-Specific Ectopy: None EKG Comparison: Other - No prior to compare Summary of EKG Findings: An EKG at 11:54 reveals SR nml AV/IV CT, nml QTc, and nml axis. No acute changes. Re-Evaluation - Re-Evaluation First Eval Re-Evaluation Time: 16:22 Change: Improved Comment: Pain has no discomfort. She is awaiting her second troponin. Vital signs: HR 59 bpm, BP 143/75. Second Eval Re-Evaluation Time: 18:00 Change: Unchanged Comment: She is still pain free. Discussed discharge plan. Chest Pain Course/Dx - Course Course Of Treatment: Pt is a 63 y/o female who presents to the ED c/o left anterior and sub-sternal CP, and SOB with exertion for 1 week. She was sent here by Dr. Blas for a cardiac workup. A physical exam was normal. Pt medications reviewed this visit. Nurses notes reviewed. Allergies noted. A CXR was negative. An EKG was normal SRwith a rate of 65 bpm with no acute changes and no prior to compare. First troponin of 0.00, second troponin of 0.01. HEART score= 2. Did not call a STEMI code because the pt is not currently having pain and the ST elevation is minimal and non-specific. Pt will be discharged with final diagnoses of chest pain and poorly controlled hypertension. She is agreeable with this plan. She is advised to call Dr. Blas in the am. - Diagnoses Provider Diagnoses: Chest pain, Poorly-controlled hypertension Discharge - Sign-Out/Discharge Documenting (check all that apply): Patient Departure - Discharge Patient Received Moderate/Deep Sedation with Procedure: No - Discharge Plan Condition: Improved Disposition: HOME Patient Education Materials: Chest Pain (ED), Hypertension (ED) Referrals: Mary Alice Blas MD [Primary Care Provider] - 1 Day Additional Instructions: With the studies done in the Emergency Department we did not find any serious causes for your chest pain. Call Dr. Blas in the am. Return to the ED with any new or worsening symptoms. - Billing Disposition and Condition Condition: IMPROVED Disposition: Home - Attestation Statements Document Initiated by Scribe: Yes Documenting Scribe: Lynda Vo Provider For Whom Scribe is Documenting (Include Credential): Asuncion Mei MD Scribe Attestation: Lynda Bejarano, scribed for Asuncion Mei MD on 11/17/18 at 2205. Scribe Documentation Reviewed: Yes Provider Attestation: The documentation as recorded by the Lynda condon accurately reflects the service I personally performed and the decisions made by me, Asuncion Mei MD Status of Scribe Document: Viewed
[2018-11-17] MEDS ORDERED: Aspirin 81 mg CHEW TAB* 81 MG TAB.CHEW PO ONE (12:03)
[2018-11-17] MEDS ORDERED: Aspirin 81 mg CHEW TAB* 81 MG TAB.CHEW ONE (12:03)
--- OUTSIDE RECORDS SUMMARY | 2018-11-17 12:47 | XMS REPORT | Continuity of Care Document ---
:1955 External Reference #:[id number] Author Name LoidaDara dejesus Care Team Providers Name Role Phone Oh Lisa Primary Care Physician Unavailable Payers Date Identification Numbers Payment Provider Subscriber Effective: 2014 Policy Number: [id number] [facility] Annie Adan Expires: 2017 PayID: [id number] [address] [place] [address] Effective: 2014 Policy Number: [id number] [place] Annie Adan Expires: 2017 PayID: [id number] [address] [place] [address] Policy Number: [id number] Medicare [place] Annie Adan PayID: [id number] [address] [address] [place] [address] Policy Number: [id number] Today's Options [facility] Annie Adan PayID: [id number] [facility] [address] [address] [place] [address] Advance Directives Description No Information Available Problems Date Description Provider Status Onset: 01/25/2015 Obesity Active Onset: 01/25/2015 Asthma without status asthmaticus Active Onset: 12/15/2014 Benign neoplasm of cerebral meninges Active Onset: 11/17/2014 Essential hypertension Hang Claros MD Active Onset: 11/17/2014 Asthma Hang Claros MD Active Onset: 11/17/2014 Obstructive sleep apnea syndrome Hang Claros MD Active Onset: 11/17/2014 Excision of tumor of brain meninges Hang Claros MD Active Family History Date Family Member(s) Observation Comments Father due to VT () - age 29 Mother due to Old Age () - age 75 Children 4 First Son A&W Second Son A&W First Daughter A&W Second Daughter A&W Paternal Grandfather due to Unknown Causes () Paternal Grandmother due to Natural Causes () Maternal Grandfather due to Unknown Causes () Maternal Grandmother due to Cancer () Social History Type Date Description Comments Sex Unknown Education Highest level completed, 11th grade Marital Status Legal Status: Lives With Daughter Occupation Homemaker Cigarette Use Former Cigarette Smoker ETOH Use Rarely consumes alcohol Recreational Drug Use Does Not Use Drugs Tobacco Use Start: Unknown End: Patient is a former smoker Unknown Smoking Status Reviewed: 11/09/18 Patient is a former smoker Seat Belt/Car Seat Always uses seat belt Currently Active Patient is currently not sexually active Contraceptive Methods None STD's No STD History Allergies, Adverse Reactions, Alerts Date Description Reaction Status Severity Comments 11/17/2014 Eggs Or Egg-Derived Products Active Medications Medication Date Status Form Strength Qnty SIG Indications Ordering Provider Lisinopril / Active Tablets 40mg Oh, Lisa Advair Diskus / Active Aerosol 250-50mcg/ Oh, Dose Lisa Amlodipine / Active Tablets 5mg Unknown Besylate 0000 Fluocinonide / Active Solution 0.05% , Lisa Ferrous / Active Tablets 324(38Fe) Adriano Gluclouis 0000 mg Lisa Aleve / Active Unknown 0000 Albuterol / Active Unknown Sulfate 0000 Ventolin HFA / Active Unknown 0000 Vitamin D / Active Capsules 1000Unit Unknown (Cholecalcifero 0000 l) Omeprazole / Active Capsules DR 20mg Unknown 0000 Ketoconazole 12/27/ Hx Shampoo 2% 120un wash hair Adriano, 2014 - its 2x per Lisa week 2014 Advair Diskus / Hx Aerosol 250-50mcg/ 1unit 1 puff by Adriano, - Dose s mouth Lisa 09/07/ twice a 2015 day Lopressor / Hx Tablets 100mg 60tab 1 by mouth Oh, - s twice a Lisa day 2014 Betamethasone / Hx Cream 0.1% apply Unknown Valerate 0000 - twice a day 2014 Fluocinonide / Hx Solution 0.05% 60uni apply to Adriano 0000 - ts scalp in Lisa am morning 2014 Ketoconazole /00/ Hx Shampoo 2% apply Unknown 0000 - twice a 09/07/ week for 2014 up to 8 weeks with at least 3 days between each shampoo. Fluocinolone /00/ Hx Cream 0.01% 60uni apply to Marek Oh 0000 - ts affected Lisa 09/07/ once 2014 daily Ibuprofen 00/00/ Hx Tablets 800mg by mouth Unknown 0000 - three 09/07/ times a 2014 day as needed Colace / Hx Capsules 100mg 1 by mouth Unknown 0000 - 3x a day 2014 Ferrous 00/ Hx Tablets 325(36Fe) 60tab 1 by mouth Adriano Gluconate 0000 - mg s 2x a day Lisa 2014 Albuterol / Hx Nebulizer (2.5mg/3ML 1 vial via Unknown Sulfate 0000 - ) 0.083% nebulizer times 2014 daily as needed Ventolin HFA / Hx Aerosol 108(90Base 2 puffs by Unknown 0000 - ) mcg/Act mouth four 03/07/ a 2014 day as needed Amlodipine 00/ Hx Tablets 5mg Unknown Besylate 0000 - 2014 Fluocinolone 00/ Hx Cream 0.01% Marek Oh 0000 - Lisa 2018 Escitalopram 00/ Hx Tablets 5mg Bezirgani Oxalate 0000 - Aidan cadena 11/09/ Rhiannon Aguila 2018 Ketoconazole 00/00/ Hx Unknown 0000 - 2018 Lopressor 00/00/ Hx Unknown 0000 - 2018 Immunizations CPT Code Status Date Vaccine Lot # [id number] Given 02/10/2015 Pneumococcal Conjugate Vaccine 13 Valent For Intramuscular Use Vital Signs Date Vital Result Comment 11/09/2018 9:28am BP Systolic 138 mmHg BP Diastolic 70 mmHg Height 66 inches 5'6" Weight 210.00 lb BMI (Body Mass Index) 33.9 kg/m2 Last Menstrual Period [id number] 6 Parity 4 08/22/2017 11:00am BP Systolic 138 mmHg BP Diastolic 70 mmHg Height 66 inches 5'6" Weight 207.00 lb BMI (Body Mass Index) 33.4 kg/m2 Last Menstrual Period 9137743 6 Parity 4 07/15/2016 10:39am BP Systolic 126 mmHg BP Diastolic 68 mmHg Height 66 inches 5'6" Weight 211.00 lb BMI (Body Mass Index) 34.1 kg/m2 Last Menstrual Period 4432303 6 Parity 4 03/07/2015 2:10pm BP Systolic 124 mmHg BP Diastolic 72 mmHg Height 66 inches Weight 204.00 lb BMI (Body Mass Index) 32.9 kg/m2 Last Menstrual Period [id number] 02/10/2015 10:59am BP Systolic 148 mmHg BP Diastolic 82 mmHg Heart Rate 66 /min Height 64.5 inches Weight 203.00 lb BMI (Body Mass Index) 34.3 kg/m2 01/25/2015 2:13pm BP Systolic 150 mmHg BP Diastolic 84 mmHg Body Temperature 98.7 F Heart Rate 61 /min Height 64.5 inches Weight 200.00 lb BMI (Body Mass Index) 33.8 kg/m2 01/16/2015 10:38am Height 64 inches Weight 195.00 lb BMI (Body Mass Index) 33.5 kg/m2 Results Test Date Facility Test Result H/L Range Note Laboratory test 08/22/2017 [facility] Cytology SEE RESULT [address] [place] [address] BELOW [phone] Laboratory test 07/15/2016 [facility] Cytology SEE RESULT [address] [place] [address] BELOW [phone] Human Papilloma Virus Rna Negative N Negative 3 Laboratory test 03/07/2015 [facility] Cytology SEE RESULT [address] [place] [address] BELOW [phone] Laboratory test 01/06/2015 N2N/CCD Import Ferritin 22.6 ng/mL 11-307 finding CBC Auto Diff 01/06/2015 N2N/CCD Import Abs Basophils 0 10^3/uL 0-0.2 Abs Eosinophils 0.4 10^3/uL 0-0.6 Abs Lymphocytes 2.1 10^3/uL 1.0-4.8 Abs Monocytes 0.6 10^3/uL 0-0.8 Abs Neutrophils 3.7 10^3/uL 1.5-7.7 Abs Nucleated RBC 0.01 10^3/uL Basophil % 0.7 % 0-2 Eosinophil % 5.4 % 0-6 Granulocyte % 55.1 % 38-83 Hematocrit 35 % 35-47 Hemoglobin 11.4 g/dL Low 12.0-16.0 Lymphocyte % 30.5 % 25-47 Mean Corpuscular HGB Conc 32 g/dL 31-36 Mean Corpuscular Hemoglobin 27 pg 27-31 Mean Corpuscular Volume 83 fL 80-97 Mean Platelet Volume 7 um3 Low 7.4-10.4 Monocyte % 8.3 % 1-9 Nucleated Red Blood Cells % 0.1 Platelet Count 379 10^3/uL 150-450 Red Blood Count 4.25 10^6/uL 4.0-5.4 Red Cell Distribution Width 17 % High 10.5-15 White Blood Count 6.7 10^3/uL 4.8-10.8 Iron & Iron Binding 01/06/2015 N2N/CCD Import % Iron Saturation 18 % 15- 55 Capacity Iron 62 g/dL 50-212 Total Iron Binding Capacity 336 g/dL 250-450 Unsaturated Iron Binding 274 g/dL Vitamin B12 And Folate Serum 01/06/2015 N2N/CCD Import Folate 8.53 ng/mL >3.99 Vitamin B12 345 pg/mL 180-914 5 Laboratory test 12/07/2014 N2N/CCD Import Swapna (Anti-Nuclear Reflexed to Negative finding AB) Screen Fa Swapna Pattern Centromere Negative Swapna Reviewed By MD Janeth Mendes 6 Swapna Titer 1:640 <1:80 C Reactive Protein 6.48 mg/L High < 5.00 7 Erythrocyte Sed Rate 26 mm/Hr 0-30 Hematocrit 38 % 35-47 Hemoglobin 11.9 g/dL Low 12.0-16.0 Mean Corpuscular HGB Conc 31 g/dL 31-36 Mean Corpuscular Hemoglobin 26 pg Low 27-31 Mean Corpuscular Volume 82 fL 80-97 Mean Platelet Volume 7 um3 Low 7.4-10.4 Platelet Count 514 10^3/uL High 150-450 Red Blood Count 4.67 10^6/uL 4.0-5.4 Red Cell Distribution Width 17 % High 10.5-15 Rheumatoid Factor <15 Iu/ml <15 8 Uric Acid 5.2 mg/dL 2.3-6.6 White Blood Count 14.0 10^3/uL High 4.8-10.8 Laboratory test finding 11/22/2014 N2N/CCD Import Albumin 4.1 g/dL 3.2- 5.2 9 Albumin/Globulin Ratio 1.4 1-3 Alkaline Phosphatase 80 U/L 34-104 Alt 9 U/L 7-52 Anion Gap 5 mmol/L 2-11 Ast 16 U/L 13-39 BUN/Creatinine Ratio 21.5 High 8-20 Blood Urea Nitrogen 17 mg/dL 6-24 Calcium 9.7 mg/dL 8.6-10.3 Chloride 103 mmol/L 101-111 Co2 Carbon Dioxide 31 mmol/L 22-32 Creatinine 0.79 mg/dL 0.51-0.95 Egfr 95.8 >60 10 Egfr Non- 74.5 >60 Globulin 2.9 g/dL 2-4 Glucose 88 mg/dL 70-100 Potassium 4.2 mmol/L 3.5-5.0 Sodium 139 mmol/L 133-145 TSH (Thyroid Stimulating Horm) 0.53 IU/mL 0.34-5.60 11 Total Bilirubin 0.60 mg/dL 0.2-1.0 Total Protein 7.0 g/dL 6.4-8.9 CBC Auto Diff 11/22/2014 N2N/CCD Import Abs Basophils 0.1 10^3/uL 0-0.2 Abs Eosinophils 0.3 10^3/uL 0-0.6 Abs Lymphocytes 2.1 10^3/uL 1.0-4.8 Abs Monocytes 0.6 10^3/uL 0-0.8 Abs Neutrophils 4.6 10^3/uL 1.5-7.7 Abs Nucleated RBC 0 10^3/uL Basophil % 0.8 % 0-2 Eosinophil % 4.2 % 0-6 Granulocyte % 60.2 % 38-83 Hematocrit 36 % 35-47 Hemoglobin 11.6 g/dL Low 12.0-16.0 Lymphocyte % 26.6 % 25-47 Mean Corpuscular HGB Conc 32 g/dL 31-36 Mean Corpuscular Hemoglobin 26 pg Low 27-31 Mean Corpuscular Volume 82 fL 80-97 Mean Platelet Volume 7 um3 Low 7.4-10.4 Monocyte % 8.2 % 1-9 Nucleated Red Blood Cells % 0 Platelet Count 421 10^3/uL 150-450 Red Blood Count 4.46 10^6/uL 4.0-5.4 Red Cell Distribution Width 17 % High 10.5-15 White Blood Count 7.7 10^3/uL 4.8-10.8 Lipid Profile (Trig/Chol/HDL) 11/22/2014 N2N/CCD Import Cholesterol 172 mg/ dL 12 HDL Cholesterol 57.6 mg/dL 13 LDL Cholesterol 94 mg/dL 14 Triglycerides 100 mg/dL 15 Urinalysis Profile 11/22/2014 N2N/CCD Import Urine Appearance Clear Urine Bilirubin Negative Negative Urine Blood Negative Negative Urine Color Yellow Urine Glucose Negative Negative Urine Ketones Negative Negative Urine Leukocytes Negative Negative Urine Nitrite Negative Negative Urine Protein Negative Negative Urine Specific [place] 1.020 1.010-1.030 Urine Urobilinogen Negative Negative Urine pH 6.0 5-9 1 SEE RESULT BELOW Name: ANNIE ADAN : [address]: Rocio Gilliland MD Acct: [id number] Unit: [id number] AGE: 62 Location: [facility] Re08/22/17 SEX: F Status: REG REF SPEC: [id number] AJ: 08/22/17-[address] [facility] [address]: Rocio Gilliland MD REQ: [id number] RECD: 08/22/17-5471 STATUS: CHINO MAST DR: Mary Alice Blas MD _ ORDERED: TP IMAGE ANAL COMMENTS: [id number] Negative for Intraepithelial lesion or Malignancy A. Ectocervical/Endocervical Specimen Adequacy: Satisfactory of evaluation Transformation zone component identified Patient Information: HPV: Thin Layer Pap Test w/reflex to high risk HPV RNA testing when ASCUS Actual Specimen Date: 08/22/17 Last Menstrual Date: 09/01/03 Date of Last Specimen: 07/15/16 ?: N Post Menopausal?: Y Hysterectomy?: N Signed (signature on file) Benji KASSANDRA [place] (ASCP) 08/28 1224 This Pap test was evaluated with the assistance of the [address] [employer] IP[employer] Test Imaging System. Due to cytologic findings at the plant maintenance technician microscope, comprehensive manual rescreening by a Clinical Resource Nurse may be required. The Pap Smear is a screening test designed to aid in the detection of premalignant and malignant conditions of the uterine cervix. It is not a diagnostic procedure and should not be used as the sole means of detecting cervical cancer. Both false- positive and false- negative reports do occur. Depending on your risk status, a Pap smear should be obtained and evaluated every 1-3 years. END OF REPORT * ML=Testing performed at Main Lab DEPARTMENT OF PATHOLOGY, [address] [place] [address] Kalin Montanez M.D. Director [facility] # [id number] 2 SEE RESULT BELOW Name: ANNIE ADAN DOB: [address]: Shahla Rose NP Acct: [id number] Unit: [id number] AGE: 60 Location: [facility] Re07/15/16 SEX: F Status: REG REF SPEC: [id number] AJ: 07/15/[address]: Shahla Rose NP REQ: [id number] RECD: 07/15/16 STATUS: SOUT _ ORDERED: IMAGE ANALYSIS, HPV/Thin Prep COMMENTS: [id number] FINAL DIAGNOSIS Negative for Intraepithelial lesion or Malignancy A. Ectocervical/Endocervical Specimen Adequacy: Satisfactory of evaluation Transformation zone component identified Patient Information: HPV: High risk HPV RNA testing regardless of pap results. Actual Specimen Date: 07/15/16 Last Menstrual Date: 09/01/03 Date of Last Specimen: 03/07/15 ?: N Date Time Test Result Flag (u) Normal Range 07/15/16 1242 HPV RNA Negative Negative The high-risk HPV types detected by the assay include: 16, 18, 31, 33, 35, 39, 45, 51, 52, 56, 58, 59, 66, and 68. Signed (signature on file) Ger KASSANDRA Bettencourt(ASCP) 07/16 1354 This Pap test was evaluated with the assistance of the [employer] Test Imaging System. Due to cytologic findings at the plant maintenance technician microscope, comprehensive manual rescreening by a Clinical Resource Nurse may be required. The Pap Smear is a screening test designed to aid in the detection of premalignant and malignant conditions of the uterine cervix. It is not a diagnostic procedure and should not be used as the sole means of detecting cervical cancer. Both false- positive and false- negative reports do occur. Depending on your risk status, a Pap smear should be obtained and evaluated every 1-3 years. END OF REPORT * ML=Testing performed at Main Lab DEPARTMENT OF PATHOLOGY, [address] [place] [address] Kalin Montanez M.D. Director [facility] # [id number] 3 The high-risk HPV types detected by the assay include: 16, 18, 31, 33, 35, 39, 45, 51, 52, 56, 58, 59, 66, and 68. 4 SEE RESULT BELOW Name: ANNIE ADAN : [address]: Shahla Rose NP Acct: [id number] Unit: [id number] AGE: 59 Location: [facility] Re03/07/15 SEX: F Status: REG REF SPEC: [id number] AJ: 03/07/15-[address]: Shahla Rose NP REQ: [id number] RECD: 03/07/15 STATUS: SOUT _ ORDERED: IMAGE ANALYSIS FINAL DIAGNOSIS Negative for Intraepithelial lesion or Malignancy A. Ectocervical/Endocervical Specimen Adequacy: Satisfactory of evaluation Transformation zone component identified Patient Information: HPV: Thin Layer Pap Test w/reflex to high risk HPV RNA testing when ASCUS Actual Specimen Date: 03/07/15 LMP If Unknown: 2003 Post Menopausal?: Y Other Pertinent History: Prior Unknown Signed (signature on file) KASSANDRA Rivera (ASCP) 03/08 1528 This Pap test was evaluated with the assistance of the [address] [employer] IP[employer] Test Imaging System. Due to cytologic findings at the plant maintenance technician microscope, comprehensive manual rescreening by a Clinical Resource Nurse may be required. The Pap Smear is a screening test designed to aid in the detection of premalignant and malignant conditions of the uterine cervix. It is not a diagnostic procedure and should not be used as the sole means of detecting cervical cancer. Both false- positive and false- negative reports do occur. Depending on your risk status, a Pap smear should be obtained and evaluated every 1-3 years. END OF REPORT * ML=Testing performed at Main Lab DEPARTMENT OF PATHOLOGY, [address] [place] [address] Kalin Montanez M.D. Director [facility] # [id number] 5 Normal Range 180 to 914 Indeterminate Range 145 to 180 Deficient Range <145 6 Janeth Vaughn 7 Acute inflammation: >10.00 8 Test Performed by: [place] [address] [employer]: Edward Brunson II, M.D., Ph.D. 9 FASTING 10 Because ethnic data is not always readily available, this report includes an eGFR for both -Americans and non- Americans. The National Kidney Disease Education Program (NKDEP) does not endorse the use of the MDRD equation for patients that are not between the ages of 18 and 70, are , have extremes of body size, muscle mass, or nutritional status, or are non- or non-. According to the National Kidney Foundation, irrespective of diagnosis, the stage of the disease is based on the level of kidney function: Stage Description GFR(mL/min/1.73 m(2)) 1 Kidney damage with normal or decreased GFR 90 2 Kidney damage with mild decrease in GFR 60-89 3 Moderate decrease in GFR 30-59 4 Severe decrease in GFR 15-29 5 Kidney failure <15 (or dialysis) 11 FASTING 12 Desirable <200 Borderline high 200-239 High >239 13 Low <40 Desirable: 40-60 High: >60 14 Desirable: <100 mg/dL Near Optimal: 100-129 mg/dL Borderline High: 130-159 mg/dL High: 160-189 mg/dL Very High: >189 mg/dL 15 Desirable <150 Borderline high 150-199 High 200-499 Very High >500 Procedures Date Code Description Status 09/03/2017 [id number] Mammogram Completed 01/17/2017 [id number] Colonoscopy Completed Encounters Type Date Location Provider Dx Diagnosis Office Visit 08/22/2017 [facility] Rocio Gilliland, Z01.419 Encntr for collection systems modeler exam 11:00a M.D. (general) (routine) w/o abn findings Office Visit 07/15/2016 [facility] Shahla Rose NP Z01.419 Encntr for collection systems modeler exam 11:00a (general) (routine) w/o abn findings Office Visit 03/07/2015 [facility] Shahla Rose NP V72.31 Routine Credit Risk Specialist 2:30p Examination V76.2 Screening Malignant Neoplasm Cervix Plan of Treatment No Information Available
[2018-11-17] MEDS ORDERED: NS 0.9% 1000 ML** 1,000 ML IV ONE (12:54)
[2018-11-17 13:06] LABS: ABS Basophils 0.1 10^3/ul (0-0.2); ABS Eosinophils 0.3 10^3/ul (0-0.6); ABS Lymphocytes 2.1 10^3/ul (1.0-4.8); ABS Monocytes 0.5 10^3/ul (0-0.8); ABS Neutrophils 2.4 10^3/ul (1.5-7.7); ABS Nucleated RBC 0 10^3/ul; Eosinophil % 5.6 %; Hematocrit 37 % (33-41); Hemoglobin 11.9 g/dL (12.0-16.0); Lymphocyte % 39.7 %; Mean Corpuscular HGB Conc 32 g/dL (31-36); Mean Corpuscular Hemoglobin 26 pg (27-31); Mean Corpuscular Volume 82 fL (80-97); Mean Platelet Volume 6.8 fL (7.4-10.4); Nucleated Red Blood Cells % 0.1; Platelet Count 360 10^3/uL (150-450); Red Blood Count 4.52 10^6 /uL (3.70-4.87); Red Cell Distribution Width 15 % (10.5-15); White Blood Count 5.4 10^3/uL (3.5-10.8)
[2018-11-17 13:22] LABS: Activated Partial Thrombo Time 34.9 seconds (26.0-36.3); INR 0.98 (0.77-1.02)
[2018-11-17 13:25] LABS: Albumin 4.2 g/dL (3.2-5.2); Albumin/Globulin Ratio 1.4 (1-3); Calcium 9.4 mg/dL (8.6-10.3); EGFR African American 87.7 (>60); EGFR Non-African American 72.4 (>60); Globulin 2.9 g/dL (2-4); Potassium 4.1 mmol/L (3.5-5.0); Total Bilirubin 0.7 mg/dL (0.2-1.0); Total Protein 7.1 g/dL (6.4-8.9)
[2018-11-17 13:30] LABS: CKMB ng/mL 1.7 ng/mL (0.6-6.3)
[2018-11-17 13:55] LABS: Urine Appearance Clear; Urine Bilirubin Negative (Negative); Urine Blood Negative (Negative); Urine Color Straw; Urine Glucose Negative (Negative); Urine Ketones Negative (Negative); Urine Nitrite Negative (Negative); Urine Protein Negative (Negative); Urine Specific Gravity 1.012 (1.010-1.030); Urine Urobilinogen Negative (Negative)
[2018-11-17 14:12] LABS: T4, Total 8.71 mcg/dL (6.09-12.23)
[2018-11-17 14:16] LABS: TSH (Thyroid Stimulating Horm) 0.76 mcIU/mL (0.34-5.60)
[2018-11-17 18:34] VITALS: BP 160/77
== END 2018-11-17 18:33 | disposition home or self-care (01) ==
LOC: ED 11:32
DX: R07.9 Chest pain, unspecified (principal); Z87.891 Personal history of nicotine dependence; R06.02 Shortness of breath; I10 Essential (primary) hypertension
CPT/HCPCS: 36415; 71045; 80053; 81003; 82550; 82553; 83605; 83735; 83880; 84436; 84443; 84484; 85025; 85379; 85610; 85730; 93005; 96360; 99283; A9270-GY